=== PATIENT | female | born 1975 | race Caucasian/White ===

== ENCOUNTER 2020-08-15 19:27 | Emergency (ER) | payer OTHER ==
[2020-08-15] MEDS ORDERED: CYCLOBENZAPRINE5 MG PO (21:20)
[2020-08-15] MEDS ORDERED: IBUPROFEN600 MG PO (21:20)
== END 2020-08-15 21:33 | disposition home or self-care (01) ==
LOC: ER1 19:27
DX: S00.01XA Abrasion of scalp, initial encounter (principal); M54.2 Cervicalgia; E11.9 Type 2 diabetes mellitus without complications; I10 Essential (primary) hypertension; Z23 Encounter for immunization; V49.40XA Driver injured in collision with unspecified motor vehicles in traffic accident, initial encounter; Y92.410 Unspecified street and highway as the place of occurrence of the external cause
CPT/HCPCS: 70450; 72125; 90471; 90715; 99284

== ENCOUNTER 2020-08-17 12:32 | Emergency (ER) | payer OTHER, MEDICAID ==
[~2020-08-17 12:32] MED LIST: CYCLOBENZAPRINE5 MG PO; IBUPROFEN600 MG PO
[2020-08-17] MEDS ORDERED: PREDNISONE 20 M20 MG PO (18:20)
== END 2020-08-17 18:30 | disposition home or self-care (01) ==
LOC: ER1 12:32
DX: S46.911A Strain of unspecified muscle, fascia and tendon at shoulder and upper arm level, right arm, initial encounter (principal); S39.012A Strain of muscle, fascia and tendon of lower back, initial encounter; S01.01XA Laceration without foreign body of scalp, initial encounter; M50.322 Other cervical disc degeneration at C5-C6 level; E11.9 Type 2 diabetes mellitus without complications; I10 Essential (primary) hypertension; V49.9XXA Car occupant (driver) (passenger) injured in unspecified traffic accident, initial encounter
CPT/HCPCS: 70450; 70486; 72072; 72100; 73060; 99284